=== PATIENT | female | born 1950 | race Two or more races ===

== ENCOUNTER 2024-10-16 15:11 | Emergency (ER) | payer OTHER, MEDICAID ==
[~2024-10-16] VITALS: Ht 154.9 cm; Wt 59.0 kg
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
--- NOTE | 2024-10-16 18:08 | DVH ---
CT CHST AB PEL WO CON-NO IV/ORAL HISTORY: BODY PAIN. ABDOMINAL PAIN Comparison Study: None TECHNIQUE: Multidetector CT of the chest, abdomen and pelvis was performed from lower neck to pubic s ymphysis without the use of intravenous contrast. Axial, coronal and sagittal multiplanar reformats w ere performed by the technologist on a separate workstation. Radiation Dose : CTDI vol 6.78 mGy, DLP 424.03 mGy*cm. Findings: Chest: Lungs: Multiple small scattered groudnglass nodular opacities. Pleura: Unremarkable Heart/Great vessels: Severe coronary atherosclerosis versus stents. No cardiomegaly or pericardial ef fusion. Mediastinum: Multiple hypodense thyroid nodules. Soft tissues/Bones: Moderate compression fracture of T8. Abdomen: Liver: Unremarkable. Gallbladder: Unremarkable. Spleen: Unremarkable Pancreas: Unremarkable Adrenals: Unremarkable Kidneys: Unremarkable GI tract: Unremarkable : Myomatous uterus Vasculature: Moderate aortoiliac atherosclerosis. Lymphadenopathy: Absent Peritoneum: No ascites Musculoskeletal: Unremarkable Soft tissues: 2.2 x 3.4 cm heterogeneous ovoid lesion in lower right abdominal wall with surrounding inflammatory changes. Impression: Chest: 1. Multiple small scattered groudnglass nodular opacities. 2. Multiple hypodense thyroid nodules. Recommend a nonemergent, outpatient thyroid ultrasound for fur ther evaluation. Abdomen: 1. No acute abdominopelvic abnormalities. 2. 2.2 x 3.4 cm heterogeneous ovoid lesion in lower right abdominal wall with surrounding inflammator y changes, nonspecific. May reflect an abscess versus a hematoma. Correlate with a contrast enhanced pelvic CT or ultrasound for further evaluation.
[2024-10-16] MEDS: LORazepam 2MG/ML-1ML VIAL IV ONE (18:27)
[2024-10-16 18:35] VITALS: PULSE 59; RESP 19; O2SAT 100
[2024-10-16 19:30] VITALS: PULSE 59; RESP 19; O2SAT 93
[2024-10-16] MEDS: ONDANSETRON HCL 4 MG/2 ML VIAL IV ONE (19:49)
[2024-10-16] MEDS: MORPHINE SULFATE 4 MG/ML SYR/VIAL IV ONE (19:50)
[2024-10-16] MEDS: metFORMIN HYDROCHLORIDE 500 MG TAB PO ONE (20:18)
[2024-10-16 20:23] VITALS: BP 180/80; PULSE 59; RESP 14; TEMP 98.2; O2SAT 93
== END 2024-10-16 20:37 | disposition short-term general hospital (02) ==
LOC: ER 15:11
DX: S12.100A Unspecified displaced fracture of second cervical vertebra, initial encounter for closed fracture (principal); I10 Essential (primary) hypertension; E11.9 Type 2 diabetes mellitus without complications; V43.52XA Car driver injured in collision with other type car in traffic accident, initial encounter; Y93.89 Activity, other specified; Y92.488 Other paved roadways as the place of occurrence of the external cause; Y99.8 Other external cause status
CPT/HCPCS: 70450; 71250; 72125; 74176; 96374; 96375; 99285; J2060; J2270; J2405